=== PATIENT | female | born 1970 | race American Indian/Alaskan Native ===

== ENCOUNTER 2017-12-05 14:57 | Emergency (ER) | payer BC ==
[2017-12-05] MEDS ORDERED: CATAPRES PO ONE (16:07)
--- NOTE | 2017-12-05 16:07 | Emergency Department Report ---
ED General Adult HPI - General Chief complaint: Weakness Stated complaint: SOB Time Seen by Provider: 12/05/17 15:59 Source: patient Mode of arrival: Ambulatory Limitations: No Limitations - History of Present Illness -: Gradual Consistency: constant Improves with: none Worsens with: none Associated Symptoms: malaise, shortness of breath (W ACTIVITY LIKE WHEN SHE WAS ). denies: confusion, chest pain, cough, diaphoresis, fever/chills, headaches, loss of appetite, nausea/vomiting, rash, seizure, syncope, weakness Treatments Prior to Arrival: none, other (OUT OF BP MEDS) - Related Data Home Medications Medication Instructions Recorded Confirmed Last Taken Lisinopril [Prinivil] 10 mg PO DAILY 12/05/17 12/05/17 Unknown Previous Rx's Medication Instructions Recorded Last Taken Type Lisinopril [Zestril TAB] 10 mg PO QDAY #30 tablet 12/05/17 Unknown Rx Allergies Allergy/AdvReac Type Severity Reaction Status Date / Time No Known Allergies Allergy Verified 03/13/15 04:40 ED Review of Systems ROS: Stated complaint: SOB Other details as noted in HPI Comment: All other systems reviewed and negative Constitutional: malaise, other (OUT OF BP MEDS- LISINOPRIL). denies: chills, diaphoresis, fever Eyes: denies: eye pain ENT: denies: throat pain Respiratory: denies: orthopnea Cardiovascular: dyspnea on exertion (LIKE WHEN PREG). denies: chest pain, palpitations, orthopnea, edema, syncope, paroxysmal nocturnal dyspnea Endocrine: denies: excessive sweating, flushing, intolerance to cold Gastrointestinal: denies: abdominal pain, nausea, vomiting, diarrhea, constipation, hematemesis, melena Genitourinary: other (PT CONVINCED SHE IS - POST TUBAL. LMP 1 M AGO. STILL 1). 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) - Surgical History Past Surgical History?: Yes Additional Surgical History: TUBAL LIGATION - Family History Family history: no significant - Social History Smoking Status: Current Every Day Smoker Substance Use Type: Marijuana - Medications Home Medications: Home Medications Medication Instructions Recorded Confirmed Last Taken Type Lisinopril [Prinivil] 10 mg PO DAILY 12/05/17 12/05/17 Unknown History Lisinopril [Zestril TAB] 10 mg PO QDAY #30 tablet 12/05/17 Unknown Rx ED Physical Exam - General Limitations: No Limitations General appearance: alert, in no apparent distress - Head Head exam: Present: atraumatic - Eye Eye exam: Present: normal appearance - ENT ENT exam: Present: mucous membranes moist - Neck Neck exam: Present: normal inspection - Respiratory Respiratory exam: Present: normal lung sounds bilaterally - Cardiovascular Cardiovascular Exam: Present: regular rate - GI/Abdominal GI/Abdominal exam: Present: soft, normal bowel sounds - Rectal Rectal exam: Present: deferred - Extremities Exam Extremities exam: Present: normal inspection, full ROM, normal capillary refill - Back Exam Back exam: Present: normal inspection, full ROM. Absent: tenderness, CVA tenderness (R), CVA tenderness (L) - Neurological Exam Neurological exam: Present: alert, oriented X3, CN II-XII intact, normal gait - Psychiatric Psychiatric exam: Present: normal affect, normal mood - Skin Skin exam: Present: warm, dry, intact, normal color. Absent: rash, cyanosis ED Course Vital Signs 12/05/17 12/05/17 15:01 16:24 Temperature 98.2 F Pulse Rate 95 H 84 Respiratory 18 Rate Blood Pressure 198/131 181/122 O2 Sat by Pulse 97 Oximetry ED Medical Decision Making - Medical Decision Making PREG NEG CLONIDINE PO DC WITH LISINOPRIL AND REFERRAL DISCUSSED WITH DR HERNANDEZ - Differential Diagnosis RO PREG; HTN OFF MEDS Critical care attestation.: If time is entered above; I have spent that time in minutes in the direct care of this critically ill patient, excluding procedure time. ED Disposition Clinical Impression: Hypertension, Medication refill Disposition: - TO HOME OR SELFCARE Is pt being admited?: No Does the pt Need Aspirin: No Condition: Stable Instructions: Hypertension (ED) Additional Instructions: REST HYDRATE WITH WATER MED ORDERED TODAY LOW SALT DIET NO FRIED FOODS FOLLOW UP WITH PCP REFERRAL GIVEN BELOW Prescriptions: Lisinopril [Zestril TAB] 10 mg PO QDAY #30 tablet Referrals: PRIMARY CARE,MD [Primary Care Provider] - 3-5 Days FRANDY JEFFREY MD [Staff Physician] - 3-5 Days Time of Disposition: 16:21
[2017-12-05 16:24] VITALS: BP 181/122
[2017-12-05 16:41] LABS: Bilirubin,Urine NEG (Negative); Blood,Urine SM (Negative); Color,Urine Yellow (Yellow); Mucus,Urine FEW /HPF
[2017-12-05 16:45] LABS: HCG Qualitative,Urine Negative (Negative)
== END 2017-12-05 17:49 | disposition home or self-care (01) ==
LOC: ED 14:57
DX: I10 Essential (primary) hypertension (principal); Z76.0 Encounter for issue of repeat prescription; F17.200 Nicotine dependence, unspecified, uncomplicated; F12.90 Cannabis use, unspecified, uncomplicated; Z86.73 Personal history of transient ischemic attack (TIA), and cerebral infarction without residual deficits; Z98.51 Tubal ligation status
CPT/HCPCS: 81001; 81025; 99283

== ENCOUNTER 2018-05-06 09:37 | Emergency (ER) | payer BC ==
[2018-05-06] MEDS ORDERED: CATAPRES PO ONE ×2 (10:25→12:52)
[2018-05-06] MEDS ORDERED: ASPIRIN PO ONE ×2 (10:25→12:00)
[2018-05-06] MEDS ORDERED: CATAPRES ONE ×2 (10:26→12:57)
[2018-05-06] MEDS ORDERED: ASPIRIN ONE (10:29)
[2018-05-06 11:21] LABS: BUN/Creatinine Ratio 18; Blood Urea Nitrogen 18 mg/dL (7-17); Calcium 8.5 mg/dL (8.4-10.2); Hemolysis Index 5
[2018-05-06 11:28] LABS: Basophils # (Auto) 0.2 K/mm3 (0.0-0.1); Basophils % (Auto) 1.5 % (0.0-1.8); Eosinophils # (Auto) 0.3 K/mm3 (0.0-0.4); Eosinophils % (Auto) 2.5 % (0.0-4.3); Hematocrit 32.5 % (30.3-42.9); Lymphocytes # (Auto) 1.4 K/mm3 (1.2-5.4); Lymphocytes % (Auto) 13.8 % (13.4-35.0); Mean Corpuscular HGB Conc 31 % (30-34); Mean Corpuscular Volume 76 fl (79-97); Monocytes # (Auto) 0.7 K/mm3 (0.0-0.8); Monocytes % (Auto) 7.2 % (0.0-7.3); Red Blood Count 4.26 M/mm3 (3.65-5.03); Red Cell Distribution Width 19.5 % (13.2-15.2)
[2018-05-06 11:31] LABS: Platelet Count 248 K/mm3 (140-440)
--- NOTE | 2018-05-06 12:01 | XRay Report ---
EXAM: XR CHEST ROUTINE 2V HISTORY: Chest pain. TECHNIQUE: PA and lateral chest x-ray dated 05/06/2018 at 11:48 AM. COMPARISON: None available. FINDINGS: There is mild cardiomegaly. The mediastinum is otherwise unremarkable. The lung lebron and costophren ic angles are clear. There is no acute parenchymal infiltrate, pleural effusion, or pneumothorax see n. The visualized bony structures are within normal limits. IMPRESSION: 1. No evidence for acute cardiopulmonary disease seen. 2. Mild cardiomegaly. This document is electronically signed by Caterina Machuca MD., May 06 2018 11:58:59 AM ET
--- NOTE | 2018-05-06 13:09 | Emergency Department Report ---
ED General Adult HPI - General Chief complaint: Medical Clearance Stated complaint: SOB/NEED BP MEDS Time Seen by Provider: 05/06/18 11:56 Source: patient Mode of arrival: Ambulatory Limitations: No Limitations - History of Present Illness Initial comments: 47-year-old female the past medical history of multiple CVAs and hypertension presents to the hospital complaints of needing a refill for lisinopril and dyspnea exertion times one week. Patient has been out of her lisinopril 3 weeks because she did not want to take off from work to see a physician for a med refill. For the past one week she reports dyspnea on exertion. She denies nausea, vomiting, diaphoresis, leg swelling, calf tenderness, leg edema, or chest pain. She reports a negative stress test approximate 4 years ago. Patient states she is also under a lot of stress because she is currently in the custody raymundo with her grandson's father since her daughter was murdered in [facility]. - Related Data Previous Rx's Medication Instructions Recorded Last Taken Type Aspirin [Aspirin EC] 325 mg PO DAILY #30 tablet. 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 05/06/18 Unknown Rx Lisinopril [Zestril TAB] 40 mg PO QDAY #30 tablet 05/06/18 Unknown Rx Metoprolol [Lopressor TAB] 50 mg PO BID #60 tablet 05/06/18 Unknown Rx amLODIPine [Norvasc] 10 mg PO DAILY #30 tab 05/06/18 Unknown Rx ED Physical Exam - General Limitations: No Limitations - Other Other exam information: General: No limitations, patient is alert in no acute distress Head exam: Atraumatic, normocephalic Eyes exam: Normal appearance, pupils equal reactive to light, extraocular movements intact ENT: Moist mucous membrane, normal oropharynx Neck exam: Normal inspection, full range of motion, no meningismus nontender Respiratory exam: Clear to auscultation bilateral, no wheezes, rales, crackles Cardiovascular: Normal rate and rhythm, normal heart sounds Abdomen: Soft, nondistended, and nontender, with normal bowel sounds, no rebound, or guarding Extremity: Full range of motion normal inspection no deformity Back: Normal Inspection, full range of motion, no tenderness Neurologic: Alert, oriented x3, cranial nerves intact, no motor or sensory deficit Psychiatric: normal affect, normal mood Skin: Warm, dry, intact ED Course Vital Signs 05/06/18 05/06/18 05/06/18 10:14 10:30 12:00 Temperature 98.8 F Pulse Rate 81 Respiratory 18 18 Rate Blood Pressure 185/123 181/123 Blood Pressure 163/113 [Right] O2 Sat by Pulse 97 100 Oximetry 05/06/18 05/06/18 12:57 13:54 Temperature Pulse Rate 83 Respiratory Rate Blood Pressure 163/113 Blood Pressure 153/111 [Right] O2 Sat by Pulse Oximetry - Consultations Consultation #1: 05/06/18 13:51 Case d/w Dr Dupont, rec admission due to ekg changes. 05/06/18 14:14 case rediscussed with cards after pt states she can not be admitted. Med changes and f/u was recommended. (see prescriptions). ED Medical Decision Making - Lab Data Result diagrams: 05/06/18 10:47 05/06/18 10:47 Lab Results 05/06/18 05/06/18 05/06/18 Range/Units 10:47 10:47 10:47 WBC 10.4 (4.5-11.0) K/mm3 RBC 4.26 (3.65-5.03) M/mm3 Hgb 10.0 L (10.1-14.3) gm/dl Hct 32.5 (30.3-42.9) % MCV 76 L (79-97) fl MCH 24 L (28-32) pg MCHC 31 (30-34) % RDW 19.5 H (13.2-15.2) % Plt Count 248 (140-440) K/mm3 Lymph % (Auto) 13.8 (13.4-35.0) % [place] % (Auto) 7.2 (0.0-7.3) % Eos % (Auto) 2.5 (0.0-4.3) % Baso % (Auto) 1.5 (0.0-1.8) % Lymph # 1.4 (1.2-5.4) K/mm3 [place] # 0.7 (0.0-0.8) K/mm3 Eos # 0.3 (0.0-0.4) K/mm3 Baso # 0.2 H (0.0-0.1) K/mm3 Seg Neutrophils % 75.0 H (40.0-70.0) % Seg Neutrophils # 7.8 H (1.8-7.7) K/mm3 Sodium 142 (137-145) mmol/L Potassium 3.6 (3.6-5.0) mmol/L Chloride 105.7 (98-107) mmol/L Carbon Dioxide 22 (22-30) mmol/L Anion Gap 18 mmol/L BUN 18 H (7-17) mg/dL Creatinine 1.0 (0.7-1.2) mg/dL Estimated GFR > 60 ml/min BUN/Creatinine Ratio 18 % Glucose 102 H (65-100) mg/dL Calcium 8.5 (8.4-10.2) mg/dL Troponin T < 0.010 (0.00-0.029) ng/mL NT-Pro-B Natriuret Pep 2535 H (0-450) pg/mL HCG, Qual Negative (Negative) 05/06/18 Range/Units 13:10 WBC (4.5-11.0) K/mm3 RBC (3.65-5.03) M/mm3 Hgb (10.1-14.3) gm/dl Hct (30.3-42.9) % MCV (79-97) fl MCH (28-32) pg MCHC (30-34) % RDW (13.2-15.2) % Plt Count (140-440) K/mm3 Lymph % (Auto) (13.4-35.0) % [place] % (Auto) (0.0-7.3) % Eos % (Auto) (0.0-4.3) % Baso % (Auto) (0.0-1.8) % Lymph # (1.2-5.4) K/mm3 [place] # (0.0-0.8) K/mm3 Eos # (0.0-0.4) K/mm3 Baso # (0.0-0.1) K/mm3 Seg Neutrophils % (40.0-70.0) % Seg Neutrophils # (1.8-7.7) K/mm3 Sodium (137-145) mmol/L Potassium (3.6-5.0) mmol/L Chloride (98-107) mmol/L Carbon Dioxide (22-30) mmol/L Anion Gap mmol/L BUN (7-17) mg/dL Creatinine (0.7-1.2) mg/dL Estimated GFR ml/min BUN/Creatinine Ratio % Glucose (65-100) mg/dL Calcium (8.4-10.2) mg/dL Troponin T < 0.010 (0.00-0.029) ng/mL NT-Pro-B Natriuret Pep (0-450) pg/mL HCG, Qual (Negative) - EKG Data -: EKG Interpreted by Ok EKG shows normal: sinus rhythm, axis (qrs 61), QRS complexes (qrsd 98), ST-T waves (lat t inv) Rate: normal - Radiology Data Radiology results: report reviewed EXAM: XR CHEST ROUTINE 2V HISTORY: Chest pain. TECHNIQUE: PA and lateral chest x-ray dated 05/06/2018 at 11:48 AM. COMPARISON: None available. FINDINGS: There is mild cardiomegaly. The mediastinum is otherwise unremarkable. The lung lebron and costophrenic angles are clear. There is no acute parenchymal infiltrate, pleural effusion, or pneumothorax seen. The visualized bony structures are within normal limits. IMPRESSION: 1. No evidence for acute cardiopulmonary disease seen. 2. Mild cardiomegaly. - Medical Decision Making Patient dyspnea on exertion like secondary to a controlled hypertension secondary to noncompliance as well as stress. Admission recommended by cardiology given EKG changes compared to 2016 EKG. Patient declines admission and will sign out AGAINST MEDICAL ADVICE. Meds have been adjusted as per recommendation of physics and astronomy professor. BP was improved in the ED after clonidine. Troponin negative 2. Follow-up encouraged cardiology or to return if symptoms worsen. - Differential Diagnosis hypertensive emergency TN, unstable angina, stress Critical Care Time: No Critical care attestation.: If time is entered above; I have spent that time in minutes in the direct care of this critically ill patient, excluding procedure time. ED Disposition Clinical Impression: Hypertensive urgency, Nonadherence to medication, Acute electrocardiogram changes, History of CVA (cerebrovascular accident), SIMON (dyspnea on exertion) Disposition: DC-01 TO HOME OR SELFCARE Is pt being admited?: No Does the pt Need Aspirin: No Condition: Stable Instructions: Hypertension (ED), Dyspnea (ED) Additional Instructions: EKG shows some concerning changes compared to the previous one we have on record from 2016. After discussion with the physics and astronomy professor, admission for further heart workup was recommended. You have declined admission at this time. Please note that you are at increased risk for heart attack and sudden cardiac if you have underlying heart disease. The physics and astronomy professor has made several changes to your medications.. Please follow up with the physics and astronomy professor and primary care doctor as soon as possible preferably by Tuesday. Please return if symptoms worsen as indicated by your discharge structures. Prescriptions: Aspirin [Aspirin EC] 325 mg PO DAILY #30 tablet. 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
[2018-05-06 13:54] VITALS: BP 153/111
== END 2018-05-06 14:47 | disposition home or self-care (01) ==
LOC: ED 09:37
DX: I16.0 Hypertensive urgency (principal)
CPT/HCPCS: 36415; 71046; 80048; 83880; 84484; 84703; 85025; 93005; 93010

== ENCOUNTER 2019-01-10 15:07 | Emergency (ER) | payer BC ==
--- NOTE | 2019-01-10 15:14 | Emergency Department Report ---
Blank Doc - Documentation Documentation: 48-year-old female that presents with boil to back of head. This initial assessment/diagnostic orders/clinical plan/treatment(s) is/are subject to change based on patient's health status, clinical progression and re- assessment by fellow clinical providers in the ED. Further treatment and workup at subsequent clinical providers discretion. Patient/guardians urged not to elope from the ED as their condition may be serious if not clinically assessed and managed. Initial orders include: 1- Patient sent to [facility] for further evaluation and treatment
[2019-01-10] MEDS ORDERED: IBUPROFEN 600 MG TAB PO ONE ×2 (16:04)
--- NOTE | 2019-01-10 17:42 | Emergency Department Report ---
ED General Adult HPI - General Chief complaint: Skin/Abscess/Foreign Body Stated complaint: BOIL ON BACK OF HEAD/LOTS OF PAIN Time Seen by Provider: 01/10/19 15:13 Source: patient Mode of arrival: Ambulatory Limitations: No Limitations - History of Present Illness Initial comments: 48yo BF states that she has a boil on the back of her head after removing artificial hair. -: days(s) (1) Location: head Radiation: non-radiation Severity scale (0 -10): 10 Quality: aching Consistency: constant Improves with: none Worsens with: none Associated Symptoms: denies other symptoms Treatments Prior to Arrival: none - Related Data Previous Rx's Medication Instructions Recorded Last Taken Type Aspirin [Aspirin EC] 325 mg PO DAILY #30 tablet.dr 05/06/18 Unknown Rx Lisinopril [Zestril TAB] 40 mg PO QDAY #30 tablet 05/06/18 Unknown Rx Metoprolol [Lopressor TAB] 50 mg PO BID #60 tablet 05/06/18 Unknown Rx amLODIPine [Norvasc] 10 mg PO DAILY #30 tab 05/06/18 Unknown Rx Lisinopril [Zestril TAB] 40 mg PO QDAY #30 tablet 11/18/18 Unknown Rx Ondansetron [Zofran Odt] 4 mg PO Q8HR PRN #14 tab.rapdis 11/18/18 Unknown Rx traMADoL [Ultram] 50 mg PO Q6HR PRN #14 tablet 11/18/18 Unknown Rx Clindamycin [Clindamycin CAP] 300 mg PO Q6H 10 Days #30 capsule 01/10/19 Unknown Rx Ibuprofen [Motrin 600 MG tab] 600 mg PO TID 7 Days #21 tab 01/10/19 Unknown Rx Allergies Allergy/AdvReac Type Severity Reaction Status Date / Time iron infuction Allergy Anaphylaxis Uncoded 11/18/18 12:10 ED Review of Systems ROS: Stated complaint: BOIL ON BACK OF HEAD/LOTS OF PAIN Other details as noted in HPI ED Past Medical Hx - Past Medical History Previous Medical History?: Yes Hx Hypertension: Yes (noncompliant) 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) Hx Heart Attack/AMI: Yes (Feb 2018) - Surgical History Past Surgical History?: Yes Additional Surgical History: TUBAL LIGATION - Social History Smoking Status: Current Every Day Smoker Substance Use Type: None - Medications Home Medications: Home Medications Medication Instructions Recorded Confirmed Last Taken Type Aspirin [Aspirin EC] 325 mg PO DAILY #30 tablet.dr 05/06/18 Unknown Rx Lisinopril [Zestril TAB] 40 mg PO QDAY #30 tablet 05/06/18 Unknown Rx Metoprolol [Lopressor TAB] 50 mg PO BID #60 tablet 05/06/18 Unknown Rx amLODIPine [Norvasc] 10 mg PO DAILY #30 tab 05/06/18 Unknown Rx Lisinopril [Zestril TAB] 40 mg PO QDAY #30 tablet 11/18/18 Unknown Rx Ondansetron [Zofran Odt] 4 mg PO Q8HR PRN #14 tab.rapdis 11/18/18 Unknown Rx traMADoL [Ultram] 50 mg PO Q6HR PRN #14 tablet 11/18/18 Unknown Rx Clindamycin [Clindamycin CAP] 300 mg PO Q6H 10 Days #30 capsule 01/10/19 Unknown Rx Ibuprofen [Motrin 600 MG tab] 600 mg PO TID 7 Days #21 tab 01/10/19 Unknown Rx ED Physical Exam - General Limitations: No Limitations General appearance: alert, in no apparent distress, appears intoxicated - Head Head exam: Present: atraumatic, other (abscess at the medial-posterior portion if the scalp) - Eye Eye exam: Present: normal appearance, PERRL, EOMI - ENT ENT exam: Present: normal exam - Neck Neck exam: Present: normal inspection, tenderness, full ROM - Respiratory Respiratory exam: Present: normal lung sounds bilaterally. Absent: respiratory distress, wheezes - Cardiovascular Cardiovascular Exam: Present: regular rate, normal rhythm, normal heart sounds - GI/Abdominal GI/Abdominal exam: Present: soft, distended. Absent: tenderness - Rectal Rectal exam: Present: deferred - Extremities Exam Extremities exam: Present: normal inspection, full ROM. Absent: tenderness - Back Exam Back exam: Present: normal inspection, full ROM. Absent: tenderness - Neurological Exam Neurological exam: Present: alert, altered, oriented X3, normal gait - Psychiatric Psychiatric exam: Present: normal affect, normal mood - Skin Skin exam: Present: warm, other (redness and drainage at the site of the abscess) ED Course Vital Signs 01/10/19 01/10/19 01/10/19 15:13 16:32 18:01 Temperature 99.5 F Pulse Rate 105 H 81 Respiratory 16 19 Rate Blood Pressure 183/117 Blood Pressure 154/93 [Left] O2 Sat by Pulse 94 Oximetry - Procedure Description Procedures done: An I&D was performed. Lidocaine and Epiniephrine was used for topical anesthesia. Sensory and Neuro exam check intact during pre and post- procedure assessment. ED Medical Decision Making - Medical Decision Making 48yo BF states that she has a boil on the back of her head after removing artificial hair. An I&D was performed. Lidocaine and Epiniephrine was used for topical anesthesia. Sensory and Neuro exam check intact during pre and post- procedure assessment. Pt tolerated procedure well. Clindamycin and Ibuprofen given. F/U in 3 days to have wound repacked and assessed. Critical care attestation.: If time is entered above; I have spent that time in minutes in the direct care of this critically ill patient, excluding procedure time. ED Disposition Clinical Impression: Abscess Disposition: DC-01 TO HOME OR SELFCARE Is pt being admited?: No Does the pt Need Aspirin: No Condition: Stable Instructions: Abscess (ED) Additional Instructions: Clindamycin and Ibuprofen given. F/U in 3 days to have wound repacked and assessed. Prescriptions: Clindamycin [Clindamycin CAP] 300 mg PO Q6H 10 Days #30 capsule Ibuprofen [Motrin 600 MG tab] 600 mg PO TID 7 Days #21 tab Referrals: [facility] [Outside] - 3-5 Days Forms: Work/School Release Form(ED)
[2019-01-10] MEDS ORDERED: LIDOCAINE 1%/EPINEPHRINE 1:100,000 VIAL (20 ML) INFILTRATI NR (18:00)
[2019-01-10 18:04] VITALS: BP 154/93
== END 2019-01-10 19:09 | disposition home or self-care (01) ==
LOC: ED 15:07
DX: L02.811 Cutaneous abscess of head [any part, except face] (principal); I10 Essential (primary) hypertension; I25.2 Old myocardial infarction; Z86.73 Personal history of transient ischemic attack (TIA), and cerebral infarction without residual deficits; F17.200 Nicotine dependence, unspecified, uncomplicated
CPT/HCPCS: 99282

== ENCOUNTER 2019-01-15 17:50 | Emergency (ER) | payer BC ==
--- NOTE | 2019-01-15 18:50 | Event Note ---
ED Screening Note Date of service: 01/15/19 Time: 18:50 ED Screening Note: This is a 48 y.o. F. that presents to the ER for packing removal to occipital scalp. Patient had I&D 5 days ago. PMH of HTN This initial assessment/diagnostic orders/clinical plan/treatment(s) is/are subject to change based on patients health status, clinical progression and re- assessment by fellow clinical providers in the ED. Further treatment and workup at subsequent clinical providers discretion. Patient/guardian urged not to elope from the ED as their condition may be serious if not clinically assessed and managed. Initial orders include: Given clonidine.
[2019-01-15] MEDS ORDERED: cloNIDine 0.2 MG TAB PO ONE (18:55)
[2019-01-15] MEDS ORDERED: cloNIDine 0.2 MG TAB ONE (18:57)
--- NOTE | 2019-01-15 21:23 | Emergency Department Report ---
Suture/Staple Removal - [facility] Chief Complaint: Skin/Abscess/Foreign Body Stated Complaint: PACKING REMOVAL Time Seen by Provider: 01/15/19 18:50 When Sutures or Lacie Placed: 5-7 Days Ago Wound Location: scalp area ED Review of Systems ROS: Stated complaint: PACKING REMOVAL Other details as noted in HPI Constitutional: denies: chills, fever Eyes: denies: eye pain, eye discharge, vision change ENT: denies: ear pain, throat pain Respiratory: denies: cough, shortness of breath, wheezing Cardiovascular: denies: chest pain, palpitations Endocrine: no symptoms reported Gastrointestinal: denies: abdominal pain, nausea, diarrhea Genitourinary: denies: urgency, dysuria, discharge Musculoskeletal: denies: back pain, joint swelling, arthralgia Skin: denies: rash, lesions Neurological: denies: headache, weakness, paresthesias Psychiatric: denies: anxiety, depression Hematological/Lymphatic: denies: easy bleeding, easy bruising ED Past Medical Hx - Past Medical History Previous Medical History?: Yes Hx Hypertension: Yes (noncompliant) 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 05/06/18 Unknown Rx Lisinopril [Zestril TAB] 40 mg PO QDAY #30 tablet 05/06/18 Unknown Rx Metoprolol [Lopressor TAB] 50 mg PO BID #60 tablet 05/06/18 Unknown Rx amLODIPine [Norvasc] 10 mg PO DAILY #30 tab 05/06/18 Unknown Rx Lisinopril [Zestril TAB] 40 mg PO QDAY #30 tablet 11/18/18 Unknown Rx Ondansetron [Zofran Odt] 4 mg PO Q8HR PRN #14 tab.rapdis 11/18/18 Unknown Rx traMADoL [Ultram] 50 mg PO Q6HR PRN #14 tablet 11/18/18 Unknown Rx Clindamycin [Clindamycin CAP] 300 mg PO Q6H 10 Days #30 capsule 01/10/19 Unknown Rx Ibuprofen [Motrin 600 MG tab] 600 mg PO TID 7 Days #21 tab 01/10/19 Unknown Rx Acetaminophen/Codeine [Tylenol 1 tab PO Q6H PRN #12 tab 01/15/19 Unknown Rx /Codeine # 3 tab] Suture Removal Exam - Exam General: Vital signs noted. No distress. Alert and acting appropriately. Wound: Yes Tenderness, No Pathologic Erythema, No Drainage, No Pus, No Wound Dehiscence Other Systems: All other systems reviewed and are unremarkable. ED Course Vital Signs 01/15/19 01/15/19 18:50 19:12 Temperature 98.2 F Pulse Rate 74 74 Respiratory 18 Rate Blood Pressure 214/120 214/120 O2 Sat by Pulse 100 Oximetry - Reevaluation(s) Reevaluation #1: 01/15/19 21:20 Patient is speaking in full sentences with no signs of distress noted. ED Recheck MDM - Medical Decision Making This is a 48-year-old female that presents with packing removal. Patient is stable and was examined by me. Abscess packing has been removed and patient tolerated well. Patient was educated on proper wound care. A sterile dressing has been applied. Area has been irrigated with 40 mL of normal saline. Patient also received Catapres prior to me seeing patient and blood pressure has decreased prior to discharge. Currently patient is asymptomatic and does not have any symptoms of headache, abdominal pain, chest pain, shortness of breath, headache or stiff neck. Denies any urinary symptoms. Patient does have a primary care doctor and take lisinopril 40 mg daily which she agrees taken today. Patient stated that her normal blood pressure is typically high. As per ACEP guidance: In ED patients with asymptomatic markedly elevated blood pressure, routine screening for acute target organ injury (eg, serum creatinine, urinalysis, ECG) is not required. In patients with asymptomatic markedly elevated blood pressure, routine ED medical intervention is not required. She was instructed to Follow-up with a primary care doctor in 3-5 days or if symptoms worsen and continue return to emergency room as soon as possible. At time of discharge, the patient does not seem toxic or ill in appearance. No acute signs of distress noted. Patient agrees to discharge treatment plan of care. No further questions noted by the patient. Critical care attestation.: If time is entered above; I have spent that time in minutes in the direct care of this critically ill patient, excluding procedure time. ED Disposition Clinical Impression: Encounter for abscess packing removal HTN (hypertension) Qualifiers: Hypertension type: unspecified Qualified Code(s): I10 - Essential (primary) hypertension Disposition: TO HOME OR SELFCARE Is pt being admited?: No Does the pt Need Aspirin: No Condition: Stable Instructions: Hypertension (ED), Acute Wound Care (ED), Acetaminophen/Codeine (By mouth) Additional Instructions: Follow-up with a primary care doctor in 3-5 days or if symptoms worsen and continue return to emergency room as soon as possible. Do not operate any machinery while taking Tylenol with codeine as this may cause drowsiness. Prescriptions: Acetaminophen/Codeine [Tylenol /Codeine # 3 tab] 1 tab PO Q6H PRN #12 tab PRN Reason: Pain , Severe (7-10) Referrals: PRIMARY CARE, [Referring] - 3-5 Days TAMAR WOODS MD [Staff Physician] - 3-5 Days [facility] [Outside] - 3-5 Days [facility] [Outside] - 3-5 Days Forms: Work/School Release Form(ED)
[2019-01-15 21:26] VITALS: BP 159/92
== END 2019-01-15 21:36 | disposition home or self-care (01) ==
LOC: ED 17:50
DX: Z48.00 Encounter for change or removal of nonsurgical wound dressing (principal); I10 Essential (primary) hypertension; Z91.018 Allergy to other foods; Z98.51 Tubal ligation status; Z79.82 Long term (current) use of aspirin; Z79.899 Other long term (current) drug therapy
CPT/HCPCS: 99282

== ENCOUNTER 2020-08-26 07:08 | Observation (INO) | payer BC, OTHER ==
[2020-08-26] MEDS ORDERED: ASPIRIN 81 MG TAB CHEW PO ONE (07:18)
[2020-08-26 07:57] LABS: Basophils # (Auto) 0.1 K/mm3 (0.0-0.1); Eosinophils # (Auto) 0.2 K/mm3 (0.0-0.4); Eosinophils % (Auto) 1.8 % (0.0-4.3); Monocytes # (Auto) 0.8 K/mm3 (0.0-0.8); Monocytes % (Auto) 6.6 % (0.0-7.3)
[2020-08-26] MEDS ORDERED: cloNIDine 0.2 MG TAB PO ONE (07:58)
[2020-08-26] MEDS ORDERED: NITROGLYCERIN 2% OINT 1 GM TP ONE (07:58)
--- NOTE | 2020-08-26 08:01 | Emergency Department Report ---
HPI - General Chief Complaint: Chest Pain Time Seen by Provider: 08/26/20 07:45 - HPI HPI: Room 25 The patient is a 50-year-old female present with a chief complaint of chest pain and shortness of breath. The patient states for the past 2 days she has had intermittent substernal chest pain described as grabbing in nature. Patient also admits to dyspnea on exertion and orthopnea. Patient states she has diaphoresis and nausea without vomiting associated with her chest pain. Patient denies lower extremity edema. Patient denies history of fever. 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) Hx Heart Attack/AMI: Yes (Feb 2018) - Surgical History Past Surgical History?: No Additional Surgical History: TUBAL LIGATION - Family History Family history: no significant - Social History Smoking Status: Former Smoker (None x2 years) Substance Use Type: None (Denies illicit drug use), Alcohol (Occasional) - Medications Home Medications: Home Medications Medication Instructions Recorded Confirmed Last Taken Type Aspirin [Aspirin EC] 325 mg PO DAILY #30 tablet.dr 05/06/18 Unknown Rx Metoprolol [Lopressor TAB] 50 mg PO BID #60 tablet 05/06/18 Unknown Rx amLODIPine [Norvasc] 10 mg PO DAILY #30 tab 05/06/18 Unknown Rx lisinopriL [Zestril TAB] 40 mg PO QDAY #30 tablet 05/06/18 Unknown Rx Ondansetron [Zofran Odt] 4 mg PO Q8HR PRN #14 tab.rapdis 11/18/18 Unknown Rx lisinopriL [Zestril TAB] 40 mg PO QDAY #30 tablet 11/18/18 Unknown Rx traMADoL [Ultram] 50 mg PO Q6HR PRN #14 tablet 11/18/18 Unknown Rx Clindamycin [Clindamycin CAP] 300 mg PO Q6H 10 Days #30 capsule 01/10/19 Unknown Rx Ibuprofen [Motrin 600 MG tab] 600 mg PO TID 7 Days #21 tab 01/10/19 Unknown Rx Acetaminophen/Codeine [Tylenol 1 tab PO Q6H PRN #12 tab 01/15/19 Unknown Rx /Codeine # 3 tab] ED Review of Systems ROS: Stated complaint: ARMIN Other details as noted in HPI Constitutional: diaphoresis. denies: fever Eyes: denies: eye pain ENT: denies: throat pain Respiratory: orthopnea, shortness of breath, SOB with exertion Cardiovascular: chest pain, dyspnea on exertion, orthopnea. denies: edema Endocrine: no symptoms reported Gastrointestinal: nausea. denies: vomiting Genitourinary: denies: dysuria Musculoskeletal: denies: back pain Neurological: denies: headache Physical Exam - Physical Exam Vital Signs: Vital Signs 08/26/20 07:16 Temperature 97.4 F L Pulse Rate 83 Respiratory 16 Rate Blood Pressure 194/149 [Left] O2 Sat by Pulse 100 Oximetry Physical Exam: GENERAL: The patient is well-developed well-nourished female lying on stretcher not appearing to be in acute distress. [] HEENT: Normocephalic. Atraumatic. Extraocular motions are intact. Patient has moist mucous membranes. NECK: Supple. Trachea midline CHEST/LUNGS: Clear to auscultation. There is no respiratory distress noted. HEART/CARDIOVASCULAR: Regular. There is no tachycardia. There is no gallop rub or murmur. ABDOMEN: Abdomen is soft, nontender. Patient has normal bowel sounds. There is no abdominal distention. SKIN: There is no rash. There is no edema. There is no diaphoresis. NEURO: The patient is awake, alert, and oriented. The patient is cooperative. The patient has no focal neurologic deficits. The patient has normal speech MUSCULOSKELETAL:There is no evidence of acute injury. ED Course Vital Signs 08/26/20 07:16 Temperature 97.4 F L Pulse Rate 83 Respiratory 16 Rate Blood Pressure 194/149 [Left] O2 Sat by Pulse 100 Oximetry ED Medical Decision Making - Lab Data Result diagrams: 08/26/20 07:27 08/26/20 07:27 Laboratory Tests 08/26/20 08/26/20 08/26/20 07:27 07:27 07:27 WBC 11.2 H RBC 4.60 Hgb 14.1 Hct 42.9 MCV 98 H MCH 31 MCHC 33 RDW 17.0 H Plt Count 146 Lymph % (Auto) 14.8 Stark % (Auto) 6.6 Eos % (Auto) 1.8 Baso % (Auto) 1.0 Lymph # (Auto) 1.7 [place] # (Auto) 0.8 Eos # (Auto) 0.2 Baso # (Auto) 0.1 Seg Neutrophils % 75.8 H Seg Neutrophils # 8.9 H Sodium 143 Potassium 3.6 Chloride 105.7 Carbon Dioxide 25 Anion Gap 16 BUN 18 H Creatinine 1.0 Estimated GFR > 60 BUN/Creatinine Ratio 18 Glucose 113 H Calcium 8.7 Total Bilirubin 0.70 AST 233 H ALT 178 H Alkaline Phosphatase 121 Total Creatine Kinase 72 CK-MB (CK-2) 2.0 Troponin T < 0.010 NT-Pro-B Natriuret Pep 5713 H Total Protein 6.3 Albumin 3.6 L Albumin/Globulin Ratio 1.3 - EKG Data -: EKG Interpreted by Me EKG shows normal: sinus rhythm Rate: normal - EKG Data When compared to previous EKG there are: no significant change Interpretation: unchanged when compared t (05/06/2018) - Radiology Data Radiology results: image reviewed (Chest x-ray) interpreted by me: Chest x-ray-no definite focal infiltrates, no pneumothorax. No foreign body seen [address] [address] XRay Report Signed Patient: DEBBIE MALIK MR#: [id number] : 1970 Acct:[id number] Age/Sex: 50 / F ADM Date: 08/26/20 Loc: ED Attending Dr: Ordering Physician: KATHLEEN GALVIN MD Date of Service: 08/26/20 Procedure(s): XR chest routine 2V Accession Number(s): [id number] cc: KATHLEEN GALVIN MD Fluoro Time In Minutes: CHEST 2 VIEWS INDICATION: Chest Pain. COMPARISON: 05/06/2018 FINDINGS: Support devices: None. Heart: Stable at the upper limits of normal. Lungs/pleura: No acute air space or interstitial disease. No pneumothorax. Additional findings: None. IMPRESSION: No acute findings. No change since 05/07/2019. Signer Name: Kin Dey Jr, MD Signed: 08/26/2020 8:13 AM Workstation Name: [id number] Transcribed By: TTR Dictated By: KIN DEY JR, MD Electronically Authenticated By: KIN DEY JR, MD Signed Date/Time: 08/26/20812 DD/ 1 TD/TT: Print Cancel - Differential Diagnosis ACS, hypertensive urgency, CHF, pericarditis, GERD Critical care attestation.: If time is entered above; I have spent that time in minutes in the direct care of this critically ill patient, excluding procedure time. ED Disposition Clinical Impression: Chest pain, Hypertensive urgency, New onset of congestive heart failure Disposition: OP ADMIT IP TO THIS HOSP Is pt being admited?: Yes Does the pt Need Aspirin: Yes Condition: Fair Instructions: Nonspecific Chest Pain, Adult Referrals: PRIMARY CARE, [Primary Care Provider] - 3-5 Days Time of Disposition: 08:36 (Hospitalist paged (Dr. Ingram)) Heart Score - HEART Score History: Moderately suspicious EKG: Non-specific Age: 45-65 Risk factors: 1-2 risk factors Troponin: < normal limit HEART Score: 4 - EKG Read Time Time EKG Completed: 07:22 EKG Read Time: 07:28
--- NOTE | 2020-08-26 08:17 | XRay Report ---
CHEST 2 VIEWS INDICATION: Chest Pain. COMPARISON: 05/06/2018 FINDINGS: Support devices: None. Heart: Stable at the upper limits of normal. Lungs/pleura: No acute air space or interstitial disease. No pneumothorax. Additional findings: None. IMPRESSION: No acute findings. No change since 05/07/2019. Signer Name: Kin Dey Jr, MD Signed: 08/26/2020 8:13 AM Workstation Name: [id number]
[2020-08-26 08:18] LABS: Alanine Aminotransferase 178 units/L (7-56); Albumin 3.6 g/dL (3.9-5); BUN/Creatinine Ratio 18; Blood Urea Nitrogen 18 mg/dL (7-17); Calcium 8.7 mg/dL (8.4-10.2); Hemolysis Index 5
[2020-08-26 08:31] LABS: Hematocrit 42.9 % (30.3-42.9); Hemoglobin 14.1 gm/dl (10.1-14.3); Mean Corpuscular HGB Conc 33 % (30-34); Mean Corpuscular Volume 98 fl (79-97); Mean Platelet Volume 11.9 fl (6-12); Platelet Count 146 K/mm3 (140-440)
[2020-08-26 08:32] LABS: Lymphocytes % (Auto) 14.8 % (13.4-35.0)
[2020-08-26 08:34] LABS: Lymphocytes # (Auto) 1.7 K/mm3 (1.2-5.4)
[2020-08-26] MEDS ORDERED: FUROSEMIDE 40 MG/4 ML INJ IV ONE (08:37)
--- NOTE | 2020-08-26 11:25 | History and Physical Report ---
History of Present Illness Date of examination: 08/26/20 Date of admission: 08/26/20 08:38 Chief complaint: Chest pain History of present illness: The patient is a 50-year-old female with a history of CHF, hypertension, history of CVA without any deficit presents with a chief complaint of chest pain and shortness of breath for the past 2 days. Her chest pain described as intermittent substernal grabbing in nature associated with diaphoresis and nausea without vomiting. Patient also admits to dyspnea on exertion and orthopnea. Patient denies lower extremity edema, denies history of fever. The patient states that she has never had a stress test or cardiac catheterization but says she was told she had a heart attack at [facility] in 2019. In the ER her chest x-ray showed no infiltrates, initial troponins were normal. BNP slightly elevated. Patient is being admitted for further evaluation and management for possible CHF exacerbation and chest pain work-up. Past History Past Medical History: hypertension, stroke Past Surgical History: Other (tubal ligation) Social history: lives with family, +smoking, + alcohol use socially and sometimes during the weekends. denies: prescription drug abuse, IV drug use Family history: no significant family history Review of System: Constitutional: no fever, no chills, no weight loss Ears, eyes, nose, mouth and throat: no nasal congestion, no nasal discharge, no sinus pressure, no vision change, no red eye. Neck: No neck pain or rigidity. Cardiovascular: + chest pain, + orthopnea, no palpitations, no leg swelling Respiratory: + shortness of breath, no cough, no congestion, no wheezing Gastrointestinal: no abdominal pain, no nausea, no vomiting Genitourinary : no dysuria, no hematuria Musculoskeletal: no joint swelling or muscle ache Integumentary: no rash, no pruritis Neurological: no parathesias, no numbness, no tingling Endocrine: no cold or heat intolerance, no polyuria or polydipsia Hematologic/Lymphatic: no easy bruising, no easy bleeding, no gland swelling Allergic/Immunologic: no urticaria, no angioedema. Medications and Allergies Allergies Allergy/AdvReac Type Severity Reaction Status Date / Time iron infuction Allergy Anaphylaxis Uncoded 11/18/18 12:10 Home Medications Medication Instructions Recorded Confirmed Last Taken Type Aspirin EC DR 81 mg PO DAILY 08/26/20 08/26/20 Unknown History Ferrous Sulfate 325 mg PO Q2D 08/26/20 08/26/20 Unknown History Furosemide [Lasix TAB] 20 mg PO QDAY 08/26/20 08/26/20 Unknown History carvediloL [Coreg] 12.5 mg PO BID 08/26/20 08/26/20 Unknown History Pantoprazole [Protonix TAB] 40 mg PO QDAC #30 tablet 08/27/20 Unknown Rx Spironolactone [Aldactone] 25 mg PO QDAY #30 tablet 08/27/20 Unknown Rx lisinopriL [Zestril TAB] 20 mg PO QDAY #30 tablet 08/27/20 Unknown Rx Exam - Physical Exam Narrative exam: GENERAL: well-developed and well-nourished -Citizen Of [place] female lying on bed appeared to be slightly anxious HEENT: Normocephalic. Atraumatic. No conjunctival congestion or icterus. Patient has moist mucous membranes. NECK: Supple. Trachea midline. CHEST/LUNGS: Clear to auscultated bilaterally, breathing nonlabored. No wheezes crackles or rhonchi. HEART/CARDIOVASCULAR: Regular in rate and rhythm. S1 and S2 positive. ABDOMEN: Abdomen is soft, nontender. Patient has normal bowel sounds. SKIN: There is no rash. Warm and dry. NEURO: No focal motor deficit. Follows command. MUSCULOSKELETAL: No joint effusion or tenderness. EXTRIMITY: No edema, no cyanosis or clubbing. PSYCH: Cooperative. - Constitutional Vitals: Temp Pulse Resp BP Pulse Ox 97.4 F L 76 17 200/132 100 08/26/20 07:16 08/26/20 09:00 08/26/20 09:00 08/26/20 09:00 08/26/20 09:00 HEART Score - HEART Score EKG: Non-specific Age: 45-65 Risk factors: 1-2 risk factors Troponin: Troponin T < 0.010 ng/mL (0.00-0.029) 08/26/20 07:27 Troponin: < normal limit Results - Labs CBC & Chem 7: 08/26/20 07:27 08/26/20 07:27 Labs: Abnormal lab results 08/26/20 08/26/20 08/26/20 Range/Units 07:27 07:27 07:27 WBC 11.2 H (4.5-11.0) K/mm3 MCV 98 H (79-97) fl RDW 17.0 H (13.2-15.2) % Seg Neutrophils % 75.8 H (40.0-70.0) % Seg Neutrophils # 8.9 H (1.8-7.7) K/mm3 BUN 18 H (7-17) mg/dL Glucose 113 H (65-100) mg/dL AST 233 H (5-40) units/L ALT 178 H (7-56) units/L NT-Pro-B Natriuret Pep 5713 H (0-900) pg/mL Albumin 3.6 L (3.9-5) g/dL - Imaging and Cardiology Chest x-ray: report reviewed (No acute process) Assessment and Plan Possible acute CHF exacerbation Acute chest pain, will rule out ACS History of CVA Hypertension, uncontrolled DVT prophylaxis -- admit to telemetry bed - monitor with serial CE and EKG - will place on Aspirin, statin, and Lasix IV - order 2D echo and consult cardiology - cardiac diet now, daily weights, monitor in's and O's -Monitor BP, adjust medications - provide DVT Px with lovenox
[2020-08-26] MEDS ORDERED: ATORVASTATIN CALCIUM 40 MG PO SCH (11:30)
[2020-08-26] MEDS ORDERED: FERROUS SULFATE PO SCH (11:30)
[2020-08-26] MEDS: amLODIPine 10 MG TAB PO SCH (15:00)
[2020-08-26] MEDS: carvediloL 12.5 MG TAB PO SCH (15:05)
--- NOTE | 2020-08-26 15:10 | Consultation ---
History of Present Illness Consult date: 08/26/20 Consult reason: chest pain History of present illness: This is a 50-year old F who presents to the emergency department with 2 days of shortness of breath and chest pain. Patient reports chest pain following abdominal pain with episodes of nausea, and vomiting. She also reports intermittent diarrhea. Denies palpitations, denies dizziness. No report of syncope. No lower extremity edema. On presentation to the emergency department, patient was severely hypertensive with a systolic blood pressure at 200. Patient takes Lisinopril for a history of hypertension which is managed at [place]. Labs in the emergency department most significant for elevated liver transaminase. Troponin measurements are normal. Chest x-ray shows no evidence of interstitial edema. A 12-lead ECG is sinus rhythm, LVH with repolarization abnormalities. Patient was admitted by the hospitalist. A cardiac consultation was requested for further evaluation. Past History Past Medical History: hypertension Social history: smoking (quit a year ago) Medications and Allergies Allergies Allergy/AdvReac Type Severity Reaction Status Date / Time iron infuction Allergy Anaphylaxis Uncoded 11/18/18 12:10 Home Medications Medication Instructions Recorded Confirmed Last Taken Type Aspirin EC DR 81 mg PO DAILY 08/26/20 08/26/20 Unknown History Atorvastatin Calcium 40 mg PO DAILY 08/26/20 08/26/20 Unknown History Ferrous Sulfate 325 mg PO Q2D 08/26/20 08/26/20 Unknown History Furosemide [Lasix] 20 mg PO QDAY 08/26/20 08/26/20 Unknown History carvediloL [Coreg] 12.5 mg PO BID 08/26/20 08/26/20 Unknown History Active Meds: Active Medications Amlodipine Besylate (Amlodipine 10 Mg Tab) 10 mg PO QDAY [facility] Aspirin (Aspirin Ec 81 Mg Tab) 81 mg PO QDAY [facility] Carvedilol (Carvedilol 12.5 Mg Tab) 12.5 mg PO BID [facility] Enoxaparin Sodium (Enoxaparin 40 Mg/0.4 Ml Inj) 40 mg SUB-Q QDAY@2200 [facility]; Protocol Ferrous Sulfate (Ferrous Sulfate 325 Mg Tab) 325 mg PO Q48HR [facility] Furosemide (Furosemide 20 Mg Tab) 20 mg PO DAILY@0600 [facility] Review of Systems Cardiovascular: chest pain, shortness of breath, no palpitations, no leg edema Physical Examination Vital Signs Temp Pulse Resp BP Pulse Ox 97.4 F L 83 16 194/149 100 06/29/21 07:16 08/26/20 07:16 08/26/20 07:16 08/26/20 07:16 08/26/20 07:16 General appearance: no acute distress HEENT: Positive: PERRL Neck: Positive: trachea midline Cardiac: Positive: Reg Rate and Rhythm Lungs: Positive: Normal Breath Sounds Neuro: Positive: Grossly Intact Extremities: Absent: edema Results 08/26/20 07:27 08/26/20 07:27 Cardiac Enzymes 08/26/20 08/26/20 Range/Units 07:27 07:27 AST 233 H (5-40) units/L CK-MB (CK-2) 2.0 (0.0-4.0) ng/mL CBC 08/26/20 Range/Units 07:27 WBC 11.2 H (4.5-11.0) K/mm3 RBC 4.60 (3.65-5.03) M/mm3 Hgb 14.1 (10.1-14.3) gm/dl Hct 42.9 (30.3-42.9) % Plt Count 146 (140-440) K/mm3 Lymph # (Auto) 1.7 (1.2-5.4) K/mm3 [place] # (Auto) 0.8 (0.0-0.8) K/mm3 Eos # (Auto) 0.2 (0.0-0.4) K/mm3 Baso # (Auto) 0.1 (0.0-0.1) K/mm3 Comprehensive Metabolic Panel 08/26/20 Range/Units 07:27 Sodium 143 (137-145) mmol/L Potassium 3.6 (3.6-5.0) mmol/L Chloride 105.7 (98-107) mmol/L Carbon Dioxide 25 (22-30) mmol/L BUN 18 H (7-17) mg/dL Creatinine 1.0 (0.6-1.2) mg/dL Glucose 113 H (65-100) mg/dL Calcium 8.7 (8.4-10.2) mg/dL AST 233 H (5-40) units/L ALT 178 H (7-56) units/L Alkaline Phosphatase 121 (35-129) units/L Total Protein 6.3 (6.3-8.2) g/dL Albumin 3.6 L (3.9-5) g/dL Assessment and Plan Chest pain Poorly characterized chest pain and shortness of breath following nausea and vomiting. Hypertensive urgency Elevated liver transaminase Recommendations: An echocardiogram will be done for LVEF assessment. Low sodium diet and optimal hypertension management. Further cardiac evaluation depends on clinical course.
[2020-08-27] MEDS: ENOXAPARIN 40 MG/0.4 ML INJ SUB-Q SCH ×2 (00:23→22:02)
[2020-08-27] MEDS: carvediloL 12.5 MG TAB PO SCH ×3 (00:23→22:02)
[2020-08-27] MEDS: FUROSEMIDE 20 MG TAB PO SCH (05:51)
[2020-08-27 06:36] LABS: Albumin 3.5 g/dL (3.9-5); Bilirubin,Direct 0.3 mg/dL (0-0.2)
[2020-08-27] MEDS: ASPIRIN EC 81 MG TAB PO SCH (09:30)
[2020-08-27] MEDS: SPIRONOLACTONE 25 MG TAB PO SCH (09:30)
[2020-08-27] MEDS: amLODIPine 10 MG TAB PO SCH (09:30)
--- NOTE | 2020-08-27 09:55 | Electrocardiograph Report ---
[facility] Test Date: 2020-08-26 Test Time: 07:22:15 Pat Name: DEBBIE MALIK Department: Room: A473 Gender: F Ruby Developer: MERON : 1970 Requested By: ROSS COSTA Order Number: [id number] Reading MD: Jayme Saini Measurements Intervals [place] Rate: 78 P: 59 LA: 166 QRS: 63 QRSD: 110 T: 191 QT: 385 QTc: 440 Interpretive Statements Sinus rhythm Biatrial enlargement LVH with secondary repol abnrm No previous ECG available for comparison Electronically Signed On 08-27-2020 9:54:43 EDT by Jayme Saini
[2020-08-27] MEDS ORDERED: ASPIRIN 81 MG PO SCH (10:00)
[2020-08-27] MEDS ORDERED: FERROUS SULFATE 325 MG TAB PO SCH (10:00)
--- NOTE | 2020-08-27 10:51 | Progress Note ---
Assessment and Plan Chest pain Poorly characterized chest pain and shortness of breath following nausea and vomiting. Cardiomyopathy, uncertain chronicity an echocardiogram which showed a severe cardiomyopathy with left ventricular ejection fraction less than 20 to 25%. receives usual care at [facility]. Abdominal pain with N/V/D Chronic Hypertension Elevated liver transaminase statin therapy discontinued Recommendations: Low sodium diet. GDMT for dilated cardiomyopathy. Subjective Date of service: 08/27/20 Interval history: Patient is sitting up in bed and appears comfortable. Denies chest pain and shortness of breath. Objective Vital Signs Temp Pulse Resp BP BP Pulse Ox 08/27/20 08:02 97.4 F L 61 18 158/107 99 08/27/20 07:47 99 08/27/20 06:41 50 L 16 188/96 97 08/27/20 06:31 49 L 14 188/96 96 08/27/20 06:21 52 L 14 171/101 96 08/27/20 06:11 46 L 15 171/101 99 08/27/20 06:01 51 L 14 171/101 98 08/27/20 05:50 44 L 11 L 190/94 100 08/27/20 05:41 52 L 12 188/96 97 08/27/20 05:31 48 L 14 188/96 95 08/27/20 05:20 44 L 11 L 190/94 98 08/27/20 05:11 48 L 13 190/94 97 08/27/20 05:01 45 L 17 190/94 98 08/27/20 04:57 48 L 14 190/94 76 L 08/27/20 04:21 97.8 F 53 L 18 145/89 100 08/27/20 04:11 53 L 11 L 190/94 78 L 08/27/20 04:01 45 L 15 190/94 08/27/20 03:51 59 L 18 188/107 96 08/27/20 03:41 52 L 11 L 188/107 95 08/27/20 03:31 56 L 15 188/107 97 08/27/20 03:21 49 L 16 136/92 96 08/27/20 03:11 51 L 19 191/105 96 08/27/20 03:01 51 L 14 191/105 96 08/27/20 02:57 53 L 13 98 08/27/20 00:23 72 152/100 08/27/20 00:15 97.3 F L 72 18 152/100 100 08/26/20 23:00 136/92 08/26/20 22:51 139/87 97 08/26/20 22:41 139/87 99 08/26/20 22:31 139/87 99 08/26/20 22:21 159/99 99 08/26/20 22:11 159/99 99 08/26/20 22:01 159/99 97 08/26/20 21:51 159/99 100 08/26/20 21:41 157/89 100 08/26/20 21:31 157/89 100 08/26/20 21:21 153/88 100 08/26/20 21:11 145/87 100 08/26/20 21:01 159/99 98 08/26/20 20:50 153/88 100 08/26/20 20:42 109 H 19 132/61 99 08/26/20 20:30 153/88 08/26/20 20:26 153/88 08/26/20 20:00 145/87 08/26/20 19:56 145/87 08/26/20 19:30 132/77 08/26/20 19:26 132/77 08/26/20 19:00 143/86 08/26/20 18:47 155/107 08/26/20 18:42 155/107 08/26/20 15:00 162/115 08/26/20 14:56 162/115 08/26/20 14:00 158/107 08/26/20 13:56 158/107 08/26/20 13:00 152/99 08/26/20 12:56 152/99 08/26/20 12:00 64 11 L 159/105 100 08/26/20 11:30 62 17 200/132 100 08/26/20 11:04 57 L 200/132 100 - Physical Examination General: No Apparent Distress HEENT: Positive: PERRL Neck: Positive: trachea midline Cardiac: Positive: Reg Rate and Rhythm Lungs: Positive: Normal Breath Sounds Neuro: Positive: Grossly Intact Extremities: Absent: edema - Labs and Meds Cardiac Enzymes 08/27/20 Range/Units 05:16 AST 77 H (5-40) units/L Comprehensive Metabolic Panel 08/27/20 Range/Units 05:16 Direct Bilirubin 0.3 H (0-0.2) mg/dL Indirect Bilirubin 0.8 mg/dL AST 77 H (5-40) units/L ALT 126 H (7-56) units/L Alkaline Phosphatase 95 (35-129) units/L Total Protein 5.5 L (6.3-8.2) g/dL Albumin 3.5 L (3.9-5) g/dL
--- NOTE | 2020-08-27 15:51 | Discharge Summary ---
Providers - Providers Date of Admission: 08/26/20 08:38 Date of discharge: 08/27/20 Attending physician: ROSS COSTA 08/26/20 11:28 Consult to Physician [CONS] Routine Comment: Consulting Provider: JOSUÉ BROUSSARD Physician Instructions: Reason For Exam: chest pain Primary care physician: [employer] Hospitalization Condition: Fair Pertinent studies: Chest x-ray: 2D echocardiogram Hospital course: There is a 50-year-old female with a history of CHF, hypertension, substance abuse alcohol abuse to the hospital with complaints of chest pain and difficulty breathing. Patient states that she was in a birthday alliance party on Tuesday night and she consumed alcohol along with marijuana. Later on patient developed chest pain and shortness of breath. She presented to the hospital for further evaluation and management. Patient stated that she receives her care at [facility]. Patient was evaluated in the ER, initial cardiac enzyme and EKG was unremarkable, chest x-ray showed no infiltrates, noted to have slightly elevated BNP and elevated LFTs. Patient was admitted to telemetry floor with scheduled iv diuretics. Monitored with serial CE, EKG. Cardiology consulted, 2d echo obtained which showed EF 25 to 30%. Provided cardiac diet, daily weights, monitored in's and O's. Patients symptom improved with medical management. Cardiology recommended medical management and no further cardiac intervention. Patient was counseled to avoid alcohol and marijuana. High LFT trended down, T SH level was normal. Her statin was discontinued due to elevated LFT. Patient also noted to have uncontrolled hypertension, antihypertensive medications were adjusted for better BP control. Patient was then discharged home in stable condition with outpt f/u in 1 week. Discharge planning management was thoroughly discussed with the patient and she verbalized understanding. Disposition: DC- TO HOME OR SELFCARE Final Discharge Diagnosis (Prints w/discharge instructions): Atypical chest pain, likely due to GERD. Acute on chronic systolic CHF with dilated cardiomyopathy, EF 20 to 25%. Abdominal pain with nausea vomiting and diarrhea, resolved. Substance abuse with marijuana. History of alcohol abuse. Elevated LFTs, discontinued statin. -Could be due to underlying alcohol abuse. Hypertension uncontrolled Time spent for discharge: 40 minutes Core Measure Documentation - Palliative Care Palliative Care/ Comfort Measures: Not Applicable - Core Measures Any of the following diagnoses?: heart failure - Heart Failure Discharge Requirements LORRI/ARB for LVSD if EF <40%: Yes Beta brittany at discharge: Yes Exam - Physical Exam Narrative exam: GENERAL: well-developed and well-nourished -[place] female lying on bed appeared to be in no discomfort. HEENT: Normocephalic. Atraumatic. No conjunctival congestion or icterus. Patient has moist mucous membranes. NECK: Supple. Trachea midline. CHEST/LUNGS: Clear to auscultated bilaterally, breathing nonlabored. No wheezes crackles or rhonchi. HEART/CARDIOVASCULAR: Regular in rate and rhythm. S1 and S2 positive. ABDOMEN: Abdomen is soft, nontender. Patient has normal bowel sounds. SKIN: There is no rash. Warm and dry. NEURO: No focal motor deficit. Follows command. MUSCULOSKELETAL: No joint effusion or tenderness. EXTRIMITY: No edema, no cyanosis or clubbing. PSYCH: Cooperative. - Constitutional Vitals: Temp Pulse Resp BP Pulse Ox 97.4 F L 61 18 148/97 99 08/27/20 08:02 08/27/20 11:23 08/27/20 08:02 08/27/20 08:02 08/27/20 08:02 Plan Activity: advance as tolerated Weight Bearing Status: Weight Bear as Tolerated Diet: low fat, low salt Special Instructions: record daily weights, record daily BP diary Additional Instructions: Please continue to hold atorvastatin. Abstinence from marijuana and alcohol. Follow-up at [facility] or at [facility] in 1 week Follow up with: PRIMARY CAREMD [Primary Care Provider] - 3-5 Days JOUSÉ BROUSSARD MD [Staff Physician] - 7 Days Prescriptions: Spironolactone [Aldactone] 25 mg PO QDAY #30 tablet Pantoprazole [Protonix TAB] 40 mg PO QDAC #30 tablet lisinopriL [Zestril TAB] 20 mg PO QDAY #30 tablet
[2020-08-27 16:50] LABS: Hepatitis B Surface Antigen Non-Reactive (Negative); Hepatitis C Virus Antibody Non-Reactive (NonReactive)
[2020-08-27] MEDS: LISINOPRIL 20 MG TAB PO SCH (18:37)
[2020-08-27] MEDS: PANTOPRAZOLE 40 MG TAB PO SCH (18:37)
[2020-08-28] MEDS: FUROSEMIDE 20 MG TAB PO SCH (06:06)
[2020-08-28 09:31] VITALS: BP 131/83
[2020-08-28] MEDS: SPIRONOLACTONE 25 MG TAB PO SCH (09:57)
[2020-08-28] MEDS: PANTOPRAZOLE 40 MG TAB PO SCH (09:57)
[2020-08-28] MEDS: ASPIRIN EC 81 MG TAB PO SCH (09:58)
[2020-08-28] MEDS: carvediloL 12.5 MG TAB PO SCH (09:58)
[2020-08-28] MEDS: LISINOPRIL 20 MG TAB PO SCH (09:58)
--- NOTE | 2020-08-28 10:04 | Progress Note ---
Assessment and Plan Chest pain - resolved Poorly characterized chest pain and shortness of breath following nausea and vomiting. Cardiomyopathy, uncertain chronicity an echocardiogram which showed a severe cardiomyopathy with left ventricular ejection fraction less than 20 to 25%. receives usual care at [facility]. Abdominal pain with N/V/D Chronic Hypertension Elevated liver transaminase statin therapy discontinued Recommendations: Low sodium diet. GDMT for dilated cardiomyopathy. Otherwise, conservative cardiac management. Subjective Date of service: 08/28/20 Interval history: Patient is sitting up in bed and appears comfortable. No cardiac complaints. Blood pressure is controlled. Objective Vital Signs Temp Pulse Pulse Resp BP BP Pulse Ox 08/28/20 09:58 66 131/83 08/28/20 09:57 66 131/83 08/28/20 09:30 97.7 F 66 19 131/83 96 08/28/20 08:50 60 18 97 08/28/20 08:34 56 L 97 08/28/20 04:12 98.3 F 58 L 18 125/79 100 08/28/20 00:33 98.4 F 68 20 131/68 08/27/20 20:05 62 08/27/20 19:58 97.3 F L 62 18 128/83 100 08/27/20 19:00 58 L 08/27/20 16:04 98.8 F 58 L 18 143/87 96 08/27/20 11:23 61 - Physical Examination General: No Apparent Distress HEENT: Positive: PERRL Neck: Positive: trachea midline Cardiac: Positive: Reg Rate and Rhythm Lungs: Positive: Normal Breath Sounds Neuro: Positive: Grossly Intact Extremities: Absent: edema
--- NOTE | 2020-08-28 14:18 | Event Note ---
Date: 08/28/20 Discussed with who discharged this patient yesterday, but apparently did not sign the discharge order Patient is medically stable for discharge Room air oxygen sats reviewed on 6-minute walk Per discussion with Dr. Brasher , prescriptions were signed by her
== END 2020-08-28 16:56 | disposition home or self-care (01) ==
LOC: ED 07:08 → 4A 08:38
PROVIDERS: ADMIT Internal Medicine; ATTEND Internal Medicine
DX: R07.89 Other chest pain (principal); I16.0 Hypertensive urgency; I11.0 Hypertensive heart disease with heart failure; I50.23 Acute on chronic systolic (congestive) heart failure; R79.89 Other specified abnormal findings of blood chemistry; I42.9 Cardiomyopathy, unspecified; Z86.73 Personal history of transient ischemic attack (TIA), and cerebral infarction without residual deficits; Z98.51 Tubal ligation status; Z79.82 Long term (current) use of aspirin; Z91.19 Patient's noncompliance with other medical treatment and regimen; Z87.891 Personal history of nicotine dependence
CPT/HCPCS: 36415; 71046; 80053; 80074; 80076; 82550; 82553; 83880; 84443; 84484; 85025; 93005; 93306; 96372; 96374; 99285; G0378; J1650; J1940

== ENCOUNTER 2021-09-08 00:02 | Emergency (ER) | payer OTHER | END 2021-09-08 01:31 | disposition left against medical advice (07) | LOC: ED 00:02 | DX: R07.9 Chest pain, unspecified (principal); R06.02 Shortness of breath; Z53.21 Procedure and treatment not carried out due to patient leaving prior to being seen by health care provider ==